=== PATIENT | male | born 1995 | race Two or more races ===

== ENCOUNTER 2016-11-14 11:32 | Emergency (ER) | payer OTHER ==
--- NOTE | 2016-11-17 13:48 | ER ---
ADMIT: 11/14/2016 RM/LOC: ER [facility] MR#: [id number] [id number] [place] [address] Emergency Room Report SEX: M AGE: 20 : 1995 DATE: 11/14/2016 PRIMARY CARE: None. CHIEF COMPLAINT: Chest pain. HISTORY OF PRESENT ILLNESS: A 20-year-old male, who presents with acute onset chest pain just prior to arrival. States he was sitting at home when he felt his heart missed some beats and then felt like it was pounding in his chest. He states he has had some associated chest pain, primarily midline between the nipples radiated outward. No specific radiation to the jaw or arms. States this was associated with some nausea and sweating. No shortness of breath. Worse with deep breath. Unable to find something make this better however, he states his pain in his chest is somewhat improving. Initially, he did have some tenderness over his chest and states he did attend a constitution party last night where he consumed alcohol as well as smoking marijuana. Otherwise, he has been well over the last few days. No chronic diseases. No strong family history. COURSE IN THE EMERGENCY ROOM: GENERAL: The patient was seen and examined, afebrile, nontoxic, in mild distress, somewhat anxious, heart rate 108. ENT: Bilaterally his conjunctiva is injected. He has dilated pupils, however they are reactive. Pharynx is nonerythematous. NECK: Soft and supple. CHEST: Clear to auscultation. No wheezes, rhonchi, or rales. HEART: Regular rate and rhythm. No murmurs, gallops, or rubs. No tenderness to palpation of the chest. ABDOMEN: Nontender. SKIN: Warm and dry. EXTREMITIES: Nontender. No pedal edema. NEURO: He is alert, oriented, and appropriate with exam. EKG was obtained today shows a sinus tachycardia rate 100. No ST-T or Q wave abnormalities. I did have a long discussion with the patient today outlining his risk factors for cardiac disease. He admits he has had a history of some anxiety attacks in the past as well as feeling like his heart is skipping beats. I discussed with him the need to obtain primary care physician to follow up on some of ADMIT: 11/14/2016 RM/LOC: ER [facility] MR#: [id number] [id number] [place] [address] Emergency Room Report SEX: M AGE: 20 : 1995 these issues. I also counseled him on the drug and alcohol use. IMPRESSION: 1. Atypical chest pain. 2. Marijuana and alcohol use. DISPOSITION: The patient was discharged home. ACTIVITY: As tolerated. Tylenol or Motrin as needed for pain. Return home and rest. Follow up with Dr. Grande. Certainly stop using drugs. Return if worsening signs or symptoms. Questions sought and answered best of my ability and to the patient's satisfaction. Discharged in stable condition. CRYSTAL Yancey / Daniel Briseno MD / liliam JOB #: [id number] CC: Daniel Briseno MD, Attending Physician Zefernio Grande MD, Family Physician
== END 2016-11-14 12:25 | disposition home or self-care (01) ==
LOC: ER 11:32
DX: R07.89 Other chest pain (principal); F12.90 Cannabis use, unspecified, uncomplicated; Z72.89 Other problems related to lifestyle; Z88.0 Allergy status to penicillin; Z98.890 Other specified postprocedural states